=== PATIENT | male | born 1970 | race Caucasian/White ===

== ENCOUNTER 2018-04-27 11:36 | Inpatient (IN) | payer MEDICARE, MEDICAID ==
--- NOTE | 2018-04-27 15:48 | PCM.HP ---
H&P History of Present Illness - General Date of Service: 04/27/18 Admit Problem/Dx: S/P L) DONYA Infection Type II DM Source of Information: Patient History Limitations: Reports: No Limitations - History of Present Illness Initial Comments - Free Text/Narative: Elmer is a 47 year old male with PMH of hypertension, hyperlipidemia, type II DM, sleep apnea, and status post L)DONYA with removal and spacer placement due to infection, who is admitted to swing bed for L) DONYA infection. He was previously admitted to [facility] under care of Dr. Gaston (orthopedics). 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 He had the prosthesis removed and an antibiotic coated spacer placed on 04/21/2018. He does have partial hip dislocation, so he is to be TTWB to his LLE. He is to be on antibiotics until June 03. He is to have his sutures removed on 05/05/2018. He is admitted to swing bed for IV antibiotics and PT. At time of admission, patient denies any complaints other than left hip pain. He has been taking [place] for this, which does help the pain. Left Hip Pain Score (Numeric/FACES): 6 - Related Data Allergies/Adverse Reactions: Allergies Allergy/AdvReac Type Severity Reaction Status Date / Time amoxicillin Allergy Rash Verified 04/27/18 12:07 Penicillins Allergy Rash Verified 04/27/18 12:07 Home Medications: Home Meds Calcium Carbonate [Calcium] 500 mg PO DAILY 04/28/16 [History] Ferrous Sulfate [Iron] 325 mg PO DAILY 04/28/16 [History] metFORMIN [Glucophage] 1,000 mg PO BID 04/28/16 [History] Aspirin [Halfprin] 81 mg PO DAILY 04/27/18 [History] Cholecalciferol (Vitamin D3) [Vitamin D3] 2,000 unit PO DAILY 04/27/18 [History] Docusate Sodium 100 mg PO BID 04/27/18 [History] Hydrocodone/Acetaminophen [Hydrocodon-Acetaminophn 10-325] 1 tab PO Q4H PRN [History] Insulin Glarg,Human.Rec.Analog [LantUS Solostar] 60 unit SQ BEDTIME 04/27/18 [ History] Lisinopril 10 mg PO QPM 04/27/18 [History] Rosuvastatin Calcium 10 mg PO QPM 04/27/18 [History] Past Medical History Cardiovascular History: Reports: High Cholesterol, Hypertension Endocrine/Metabolic History: Reports: Diabetes, Type II - Past Surgical History Musculoskeletal Surgical History: Reports: Hip Replacement Social & Family History - Family History Family Medical History: Noncontributory Cardiac: Reports: High Cholesterol, Hypertension Endocrine/Metabolic: Reports: Diabetes, type II - Tobacco Use Smoking Status *Q: Never Smoker - Caffeine Use Caffeine Use: Reports: None H&P Review of Systems - Review of Systems: Review Of Systems: See Below General: Reports: No Symptoms. Denies: Fever, Chills, Weakness, Fatigue, Decreased Appetite HEENT: Reports: No Symptoms Pulmonary: Reports: No Symptoms. Denies: Shortness of Breath, Wheezing, Cough, Sputum Cardiovascular: Reports: No Symptoms. Denies: Chest Pain, Dyspnea on Exertion, Edema, Lightheadedness Gastrointestinal: Reports: No Symptoms. Denies: Abdominal Pain, Constipation, Diarrhea, Nausea, Vomiting Genitourinary: Reports: No Symptoms. Denies: Dysuria, Frequency, Urgency Musculoskeletal: Reports: Leg Pain (left), Joint Pain (left hip) Skin: Reports: Dryness (flaky), Change in Color (erythema from medication reaction) Psychiatric: Reports: No Symptoms Neurological: Reports: No Symptoms, Difficulty Walking (TTWB to LLE), Weakness. Denies: Confusion, Dizziness, Numbness, Tingling Hematologic/Lymphatic: Reports: No Symptoms Immunologic: Reports: No Symptoms Exam - Exam Exam: See Below - Vital Signs Weight: 255 lb 6.4 oz - Exam Quality Assessment: DVT Prophylaxis General: Alert, Oriented, 4 Neck: Supple, Trachea Midline, 2 Lungs: Clear to Auscultation, Normal Respiratory Effort Cardiovascular: Regular Rate, Regular Rhythm GI/Abdominal Exam: Normal Bowel Sounds, Soft, Non-Tender, No Organomegaly, No Distention, No Abnormal Bruit, No Mass, Pelvis Stable Back Exam: Normal Inspection, Full Range of Motion, Other (erythema & dry flaky skin) Extremities: Normal Capillary Refill, Leg Pain (LLE), Limited Range of Motion (L ) Hip). No: Increased Warmth, Redness Peripheral Pulses: 2+: Dorsalis Pedis (L), Dorsalis Pedis (R) Skin: Warm, Dry, Intact, Incision (L hip CDI) Neurological: Cranial Nerves Intact, Reflexes Equal Bilateral Neuro Extensive - Mental Status: Alert, Oriented x3, Normal Mood/Affect, Normal Cognition Psychiatric: Alert, Normal Affect, Normal Mood - Patient Data Result Diagrams: 04/27/18 16:10 04/27/18 16:10 - Problem List (1) Prosthetic hip infection SNOMED Code(s): 898007880 ICD Code: T84.59XA - INFECT/INFLM REACTION DUE TO OTH INTERNAL JOINT PROSTH, INIT; Z96.649 - PRESENCE OF UNSPECIFIED ARTIFICIAL HIP JOINT Status: Acute Priority: High Current Visit: Yes Qualifiers: Encounter type: initial encounter Qualified Code(s): T84.59XA - Infection and inflammatory reaction due to other internal joint prosthesis, initial encounter; Z96.649 - Presence of unspecified artificial hip joint (2) History of total left hip arthroplasty SNOMED Code(s): 108464061261 ICD Code: Z96.642 - PRESENCE OF LEFT ARTIFICIAL HIP JOINT Status: Acute Current Visit: Yes (3) Type II diabetes mellitus SNOMED Code(s): 96203399 ICD Code: E11.9 - TYPE 2 DIABETES MELLITUS WITHOUT COMPLICATIONS Status: Acute Current Visit: Yes Qualifiers: Diabetes mellitus dictaphone mechanic insulin use: with dictaphone mechanic use Diabetes mellitus complication status: with unspecified complications Qualified Code(s) : E11.8 - Type 2 diabetes mellitus with unspecified complications; Z79.4 - snf (current) use of insulin (4) Hypertension SNOMED Code(s): 96585408 ICD Code: I10 - ESSENTIAL (PRIMARY) HYPERTENSION Status: Chronic Current Visit: Yes Qualifiers: Hypertension type: unspecified Qualified Code(s): I10 - Essential (primary ) hypertension (5) Hyperlipidemia SNOMED Code(s): 38273085 ICD Code: E78.5 - HYPERLIPIDEMIA, UNSPECIFIED Status: Acute Current Visit : Yes Qualifiers: Hyperlipidemia type: mixed hyperlipidemia Qualified Code(s): E78.2 - Mixed hyperlipidemia Problem List Initiated/Reviewed/Updated: Yes Assessment/Plan Comment:: S/P Left DONYA removal with spacer placement- Infection Daptomycin 700 mg IV QD until 06/03/2018 Dressing changes PRN Suture removal 06/04/2018 Weekly labs to be faxed to ID at [facility] for DVT prophylaxis [place] as needed for pain TTWB to LLE PT consultation for gait, strenghening, endurange, and transfer training Hypertension Continue home meds Type II DM Home meds plus SSI. QID AC Consistent Carb diet Hyperlipidemia Continue statin therapy
[2018-04-27] MEDS ORDERED: Magnesium Hydroxide 400 MG/5 ML Susp 30 ML Cup PO PRN (15:54)
[2018-04-27] MEDS ORDERED: Temazepam 15 MG Cap PO PRN (15:54)
[2018-04-27] MEDS ORDERED: Polyethylene Glycol 3350 Powder 17 GM Packet PO PRN (15:54)
[2018-04-27] MEDS ORDERED: Docusate Sodium 100 MG Cap PO PRN (15:54)
[2018-04-27 16:27] LABS: CHLORIDE,CL 101 mEq/L (98-106); SODIUM,NA 139 mEq/L (136-145)
[2018-04-27] MEDS ORDERED: SODIUM CHLORIDE 0.9% IVPUSH SCH (17:00)
[2018-04-27] MEDS ORDERED: DAPTOMYCIN IVPUSH SCH (17:00)
[2018-04-27] MEDS: Enoxaparin 40 MG/0.4 ML Syringe SUBCUT SCH (17:11)
[2018-04-27] MEDS: Acetaminophen/HYDROcodone 325-5 MG Tab PO PRN ×2 (17:12→22:34)
[2018-04-27] MEDS: Insulin Aspart 100 Units/ML 3 ML Pen SUBCUT SCH ×2 (17:46→20:09)
[2018-04-27] MEDS: Acetaminophen 325 MG Tab PO PRN (18:25)
[2018-04-27] MEDS: Oxyquinoline/Emollient 0.3% Oint 1 OZ Canister TOP SCH (19:25)
[2018-04-27] MEDS: Lisinopril 10 MG Tab PO SCH (19:26)
[2018-04-27] MEDS: Docusate Sodium 100 MG Cap PO SCH (19:26)
[2018-04-27] MEDS: Simvastatin 40 MG Tab PO SCH (19:27)
[2018-04-27] MEDS ORDERED: Oxyquinoline/Emollient 0.3% Oint 1 OZ Canister TOP PRN (20:00)
[2018-04-27] MEDS ORDERED: metFORMIN 500 MG Tab PO SCH (20:00)
[2018-04-27] MEDS: Insulin Detemir 100 Units/ML 3 ML Pen SUBCUT SCH (20:08)
[2018-04-28] MEDS: Ferrous Sulfate 324 MG Tab.EC PO SCH (07:41)
[2018-04-28] MEDS: Docusate Sodium 100 MG Cap PO SCH ×2 (07:41→19:32)
[2018-04-28] MEDS: Oxyquinoline/Emollient 0.3% Oint 1 OZ Canister TOP SCH ×2 (07:41→20:30)
[2018-04-28] MEDS: Acetaminophen/HYDROcodone 325-5 MG Tab PO PRN ×3 (07:42→17:38)
[2018-04-28] MEDS: metFORMIN 500 MG Tab PO SCH ×2 (07:42→17:37)
[2018-04-28] MEDS: Cholecalciferol (Vitamin D3) 1,000 Unit Tab PO SCH (07:44)
[2018-04-28] MEDS: Calcium Carbonate 500 MG Tab.Chew PO SCH (07:44)
[2018-04-28] MEDS: Aspirin 81 MG Tab.EC PO SCH (07:44)
[2018-04-28] MEDS: Insulin Aspart 100 Units/ML 3 ML Pen SUBCUT SCH ×4 (07:45→20:25)
[2018-04-28] MEDS: DAPTOmycin 700 MG in Sodium Chloride 0.9% 50 ML IV SCH (11:36)
[2018-04-28] MEDS: Acetaminophen 325 MG Tab PO PRN (11:55)
[2018-04-28] MEDS: Enoxaparin 40 MG/0.4 ML Syringe SUBCUT SCH (16:17)
[2018-04-28] MEDS: Simvastatin 40 MG Tab PO SCH (19:32)
[2018-04-28] MEDS: Lisinopril 10 MG Tab PO SCH (19:32)
[2018-04-28] MEDS: Insulin Detemir 100 Units/ML 3 ML Pen SUBCUT SCH (20:31)
[2018-04-29] MEDS: Acetaminophen/HYDROcodone 325-5 MG Tab PO PRN ×5 (00:11→18:53)
[2018-04-29] MEDS: Oxyquinoline/Emollient 0.3% Oint 1 OZ Canister TOP SCH ×2 (07:47→19:52)
[2018-04-29] MEDS: metFORMIN 500 MG Tab PO SCH ×2 (07:48→17:34)
[2018-04-29] MEDS: Calcium Carbonate 500 MG Tab.Chew PO SCH (07:49)
[2018-04-29] MEDS: Docusate Sodium 100 MG Cap PO SCH ×2 (07:49→19:53)
[2018-04-29] MEDS: Cholecalciferol (Vitamin D3) 1,000 Unit Tab PO SCH (07:49)
[2018-04-29] MEDS: Aspirin 81 MG Tab.EC PO SCH (07:49)
[2018-04-29] MEDS: Ferrous Sulfate 324 MG Tab.EC PO SCH (07:50)
[2018-04-29] MEDS: Insulin Aspart 100 Units/ML 3 ML Pen SUBCUT SCH ×4 (07:50→21:10)
[2018-04-29] MEDS: diphenhydrAMINE 25 MG Cap PO PRN ×2 (10:47→19:53)
[2018-04-29] MEDS: DAPTOmycin 700 MG in Sodium Chloride 0.9% 50 ML IV SCH (12:34)
[2018-04-29] MEDS: Enoxaparin 40 MG/0.4 ML Syringe SUBCUT SCH (16:04)
[2018-04-29] MEDS: Lisinopril 10 MG Tab PO SCH (19:53)
[2018-04-29] MEDS: Simvastatin 40 MG Tab PO SCH (19:53)
[2018-04-29] MEDS: Insulin Detemir 100 Units/ML 3 ML Pen SUBCUT SCH (19:55)
[2018-04-30] MEDS: Acetaminophen/HYDROcodone 325-5 MG Tab PO PRN ×4 (05:58→22:34)
[2018-04-30] MEDS: Oxyquinoline/Emollient 0.3% Oint 1 OZ Canister TOP SCH ×2 (07:31→19:56)
[2018-04-30] MEDS: Ferrous Sulfate 324 MG Tab.EC PO SCH (07:32)
[2018-04-30] MEDS: Cholecalciferol (Vitamin D3) 1,000 Unit Tab PO SCH (07:32)
[2018-04-30] MEDS: Docusate Sodium 100 MG Cap PO SCH ×2 (07:32→19:57)
[2018-04-30] MEDS: Aspirin 81 MG Tab.EC PO SCH (07:34)
[2018-04-30] MEDS: Calcium Carbonate 500 MG Tab.Chew PO SCH (07:34)
[2018-04-30] MEDS: metFORMIN 500 MG Tab PO SCH ×2 (07:34→17:12)
[2018-04-30] MEDS: Insulin Aspart 100 Units/ML 3 ML Pen SUBCUT SCH ×4 (07:40→20:51)
[2018-04-30] MEDS: DAPTOmycin 700 MG in Sodium Chloride 0.9% 50 ML IV SCH (11:32)
[2018-04-30] MEDS: Enoxaparin 40 MG/0.4 ML Syringe SUBCUT SCH (15:58)
[2018-04-30] MEDS: Simvastatin 40 MG Tab PO SCH (19:57)
[2018-04-30] MEDS: Lisinopril 10 MG Tab PO SCH (19:57)
[2018-04-30] MEDS: diphenhydrAMINE 25 MG Cap PO PRN (19:59)
[2018-04-30] MEDS: Insulin Detemir 100 Units/ML 3 ML Pen SUBCUT SCH (20:50)
[2018-05-01] MEDS: Docusate Sodium 100 MG Cap PO SCH ×2 (07:13→19:43)
[2018-05-01] MEDS: Oxyquinoline/Emollient 0.3% Oint 1 OZ Canister TOP SCH ×2 (07:13→19:42)
[2018-05-01] MEDS: metFORMIN 500 MG Tab PO SCH ×2 (07:14→17:29)
[2018-05-01] MEDS: Calcium Carbonate 500 MG Tab.Chew PO SCH (07:14)
[2018-05-01] MEDS: Aspirin 81 MG Tab.EC PO SCH (07:14)
[2018-05-01] MEDS: Ferrous Sulfate 324 MG Tab.EC PO SCH (07:14)
[2018-05-01] MEDS: Cholecalciferol (Vitamin D3) 1,000 Unit Tab PO SCH (07:15)
[2018-05-01] MEDS: Acetaminophen/HYDROcodone 325-5 MG Tab PO PRN ×2 (07:18→15:33)
[2018-05-01] MEDS: Insulin Aspart 100 Units/ML 3 ML Pen SUBCUT SCH ×4 (07:57→21:00)
[2018-05-01] MEDS: DAPTOmycin 700 MG in Sodium Chloride 0.9% 50 ML IV SCH (11:26)
[2018-05-01] MEDS: Enoxaparin 40 MG/0.4 ML Syringe SUBCUT SCH (15:29)
[2018-05-01] MEDS: Simvastatin 40 MG Tab PO SCH (19:43)
[2018-05-01] MEDS: Lisinopril 10 MG Tab PO SCH (19:43)
[2018-05-01] MEDS: Insulin Detemir 100 Units/ML 3 ML Pen SUBCUT SCH (21:07)
[2018-05-02] MEDS: Oxyquinoline/Emollient 0.3% Oint 1 OZ Canister TOP SCH ×2 (07:39→20:51)
[2018-05-02] MEDS: Calcium Carbonate 500 MG Tab.Chew PO SCH (07:40)
[2018-05-02] MEDS: Insulin Aspart 100 Units/ML 3 ML Pen SUBCUT SCH ×4 (07:40→20:46)
[2018-05-02] MEDS: metFORMIN 500 MG Tab PO SCH ×2 (07:40→17:28)
[2018-05-02] MEDS: Docusate Sodium 100 MG Cap PO SCH ×2 (07:40→20:44)
[2018-05-02] MEDS: Ferrous Sulfate 324 MG Tab.EC PO SCH (07:41)
[2018-05-02] MEDS: Aspirin 81 MG Tab.EC PO SCH (07:41)
[2018-05-02] MEDS: Acetaminophen/HYDROcodone 325-5 MG Tab PO PRN ×3 (09:28→20:44)
[2018-05-02] MEDS: Cholecalciferol (Vitamin D3) 1,000 Unit Tab PO SCH (09:32)
[2018-05-02] MEDS: DAPTOmycin 700 MG in Sodium Chloride 0.9% 50 ML IV SCH (11:41)
[2018-05-02] MEDS: Enoxaparin 40 MG/0.4 ML Syringe SUBCUT SCH (16:31)
[2018-05-02] MEDS: Lisinopril 10 MG Tab PO SCH (20:43)
[2018-05-02] MEDS: Simvastatin 40 MG Tab PO SCH (20:44)
[2018-05-02] MEDS: Insulin Detemir 100 Units/ML 3 ML Pen SUBCUT SCH (20:47)
[2018-05-03] MEDS: Oxyquinoline/Emollient 0.3% Oint 1 OZ Canister TOP SCH ×2 (08:31→19:43)
[2018-05-03] MEDS: metFORMIN 500 MG Tab PO SCH ×2 (08:32→17:56)
[2018-05-03] MEDS: Ferrous Sulfate 324 MG Tab.EC PO SCH (08:32)
[2018-05-03] MEDS: Aspirin 81 MG Tab.EC PO SCH (08:32)
[2018-05-03] MEDS: Docusate Sodium 100 MG Cap PO SCH ×2 (08:32→19:43)
[2018-05-03] MEDS: Cholecalciferol (Vitamin D3) 1,000 Unit Tab PO SCH (08:32)
[2018-05-03] MEDS: Insulin Aspart 100 Units/ML 3 ML Pen SUBCUT SCH ×4 (08:34→20:53)
[2018-05-03] MEDS: Calcium Carbonate 500 MG Tab.Chew PO SCH (08:36)
[2018-05-03] MEDS: DAPTOmycin 700 MG in Sodium Chloride 0.9% 50 ML IV SCH (13:00)
[2018-05-03] MEDS: Acetaminophen/HYDROcodone 325-5 MG Tab PO PRN ×3 (13:05→20:57)
[2018-05-03] MEDS: Enoxaparin 40 MG/0.4 ML Syringe SUBCUT SCH (16:17)
[2018-05-03] MEDS: Lisinopril 10 MG Tab PO SCH (19:42)
[2018-05-03] MEDS: Simvastatin 40 MG Tab PO SCH (19:42)
[2018-05-03] MEDS: Insulin Detemir 100 Units/ML 3 ML Pen SUBCUT SCH (20:52)
[2018-05-04] MEDS: Acetaminophen/HYDROcodone 325-5 MG Tab PO PRN ×4 (04:35→20:34)
[2018-05-04] MEDS: metFORMIN 500 MG Tab PO SCH ×2 (07:35→17:20)
[2018-05-04] MEDS: Ferrous Sulfate 324 MG Tab.EC PO SCH (07:36)
[2018-05-04] MEDS: Calcium Carbonate 500 MG Tab.Chew PO SCH (07:36)
[2018-05-04] MEDS: Aspirin 81 MG Tab.EC PO SCH (07:36)
[2018-05-04] MEDS: Docusate Sodium 100 MG Cap PO SCH ×2 (07:36→20:31)
[2018-05-04] MEDS: Cholecalciferol (Vitamin D3) 1,000 Unit Tab PO SCH (07:36)
[2018-05-04] MEDS: Oxyquinoline/Emollient 0.3% Oint 1 OZ Canister TOP SCH ×2 (07:36→20:30)
[2018-05-04 07:41] LABS: CHLORIDE,CL 95 mEq/L (98-106); SODIUM,NA 131 mEq/L (136-145)
[2018-05-04] MEDS: Insulin Aspart 100 Units/ML 3 ML Pen SUBCUT SCH ×4 (07:56→20:34)
[2018-05-04] MEDS: DAPTOmycin 700 MG in Sodium Chloride 0.9% 50 ML IV SCH (11:22)
[2018-05-04] MEDS: Enoxaparin 40 MG/0.4 ML Syringe SUBCUT SCH (15:50)
[2018-05-04] MEDS: Simvastatin 40 MG Tab PO SCH (20:31)
[2018-05-04] MEDS: Insulin Detemir 100 Units/ML 3 ML Pen SUBCUT SCH (20:32)
[2018-05-04] MEDS: Lisinopril 10 MG Tab PO SCH (20:32)
[2018-05-05] MEDS: Acetaminophen/HYDROcodone 325-5 MG Tab PO PRN ×3 (03:36→19:32)
[2018-05-05] MEDS: Calcium Carbonate 500 MG Tab.Chew PO SCH (07:45)
[2018-05-05] MEDS: metFORMIN 500 MG Tab PO SCH ×2 (07:46→17:08)
[2018-05-05] MEDS: Ferrous Sulfate 324 MG Tab.EC PO SCH (07:46)
[2018-05-05] MEDS: Cholecalciferol (Vitamin D3) 1,000 Unit Tab PO SCH (07:47)
[2018-05-05] MEDS: Docusate Sodium 100 MG Cap PO SCH ×2 (07:47→19:32)
[2018-05-05] MEDS: Aspirin 81 MG Tab.EC PO SCH (07:47)
[2018-05-05] MEDS: Oxyquinoline/Emollient 0.3% Oint 1 OZ Canister TOP SCH ×2 (07:49→19:34)
[2018-05-05] MEDS: Insulin Aspart 100 Units/ML 3 ML Pen SUBCUT SCH ×4 (08:04→21:11)
[2018-05-05] MEDS: DAPTOmycin 700 MG in Sodium Chloride 0.9% 50 ML IV SCH (11:25)
[2018-05-05] MEDS: Enoxaparin 40 MG/0.4 ML Syringe SUBCUT SCH (16:17)
[2018-05-05] MEDS: Simvastatin 40 MG Tab PO SCH (19:33)
[2018-05-05] MEDS: Lisinopril 10 MG Tab PO SCH (19:33)
[2018-05-05] MEDS: Insulin Detemir 100 Units/ML 3 ML Pen SUBCUT SCH (21:09)
[2018-05-05] MEDS ORDERED: hydrOXYzine HCl 25 MG Tab PO PRN (22:24)
[2018-05-06] MEDS: Acetaminophen/HYDROcodone 325-5 MG Tab PO PRN ×4 (01:15→18:52)
[2018-05-06] MEDS: Calcium Carbonate 500 MG Tab.Chew PO SCH (08:12)
[2018-05-06] MEDS: metFORMIN 500 MG Tab PO SCH ×2 (08:13→17:20)
[2018-05-06] MEDS: Aspirin 81 MG Tab.EC PO SCH (08:13)
[2018-05-06] MEDS: Insulin Aspart 100 Units/ML 3 ML Pen SUBCUT SCH ×4 (08:13→20:04)
[2018-05-06] MEDS: Ferrous Sulfate 324 MG Tab.EC PO SCH (08:13)
[2018-05-06] MEDS: Docusate Sodium 100 MG Cap PO SCH ×2 (08:13→20:01)
[2018-05-06] MEDS: Oxyquinoline/Emollient 0.3% Oint 1 OZ Canister TOP SCH ×2 (08:13→20:00)
[2018-05-06] MEDS: Cholecalciferol (Vitamin D3) 1,000 Unit Tab PO SCH (08:13)
[2018-05-06] MEDS: DAPTOmycin 700 MG in Sodium Chloride 0.9% 50 ML IV SCH (11:44)
[2018-05-06] MEDS: Enoxaparin 40 MG/0.4 ML Syringe SUBCUT SCH (17:19)
[2018-05-06] MEDS: Lisinopril 10 MG Tab PO SCH (20:01)
[2018-05-06] MEDS: Simvastatin 40 MG Tab PO SCH (20:02)
[2018-05-06] MEDS: Insulin Detemir 100 Units/ML 3 ML Pen SUBCUT SCH (20:05)
[2018-05-07] MEDS: Acetaminophen/HYDROcodone 325-5 MG Tab PO PRN ×4 (02:45→20:41)
[2018-05-07] MEDS: Oxyquinoline/Emollient 0.3% Oint 1 OZ Canister TOP SCH ×2 (08:31→19:34)
[2018-05-07] MEDS: Calcium Carbonate 500 MG Tab.Chew PO SCH (08:31)
[2018-05-07] MEDS: Aspirin 81 MG Tab.EC PO SCH (08:33)
[2018-05-07] MEDS: Cholecalciferol (Vitamin D3) 1,000 Unit Tab PO SCH (08:33)
[2018-05-07] MEDS: Docusate Sodium 100 MG Cap PO SCH ×2 (08:33→19:35)
[2018-05-07] MEDS: Ferrous Sulfate 324 MG Tab.EC PO SCH (08:33)
[2018-05-07] MEDS: Insulin Aspart 100 Units/ML 3 ML Pen SUBCUT SCH ×4 (08:34→20:44)
[2018-05-07] MEDS: metFORMIN 500 MG Tab PO SCH ×2 (08:34→17:20)
[2018-05-07] MEDS: DAPTOmycin 700 MG in Sodium Chloride 0.9% 50 ML IV SCH (12:41)
[2018-05-07] MEDS: Enoxaparin 40 MG/0.4 ML Syringe SUBCUT SCH (15:03)
[2018-05-07] MEDS: Lisinopril 10 MG Tab PO SCH (19:35)
[2018-05-07] MEDS: Simvastatin 40 MG Tab PO SCH (19:35)
[2018-05-07] MEDS: Insulin Detemir 100 Units/ML 3 ML Pen SUBCUT SCH (20:43)
[2018-05-08] MEDS: Acetaminophen/HYDROcodone 325-5 MG Tab PO PRN ×2 (03:17→14:49)
[2018-05-08] MEDS: Calcium Carbonate 500 MG Tab.Chew PO SCH (08:16)
[2018-05-08] MEDS: Ferrous Sulfate 324 MG Tab.EC PO SCH (08:16)
[2018-05-08] MEDS: Aspirin 81 MG Tab.EC PO SCH (08:16)
[2018-05-08] MEDS: metFORMIN 500 MG Tab PO SCH ×2 (08:16→17:27)
[2018-05-08] MEDS: Cholecalciferol (Vitamin D3) 1,000 Unit Tab PO SCH (08:16)
[2018-05-08] MEDS: Insulin Aspart 100 Units/ML 3 ML Pen SUBCUT SCH ×4 (08:17→20:09)
[2018-05-08] MEDS: Docusate Sodium 100 MG Cap PO SCH ×2 (08:17→19:31)
[2018-05-08] MEDS: Oxyquinoline/Emollient 0.3% Oint 1 OZ Canister TOP SCH ×2 (08:17→19:30)
[2018-05-08] MEDS: Acetaminophen 325 MG Tab PO PRN (11:13)
[2018-05-08] MEDS: DAPTOmycin 700 MG in Sodium Chloride 0.9% 50 ML IV SCH (11:13)
[2018-05-08] MEDS: Enoxaparin 40 MG/0.4 ML Syringe SUBCUT SCH (17:27)
[2018-05-08] MEDS: Lisinopril 10 MG Tab PO SCH (19:31)
[2018-05-08] MEDS: Simvastatin 40 MG Tab PO SCH (19:31)
[2018-05-08] MEDS: Insulin Detemir 100 Units/ML 3 ML Pen SUBCUT SCH (20:08)
[2018-05-09] MEDS: Acetaminophen/HYDROcodone 325-5 MG Tab PO PRN ×5 (00:36→21:55)
[2018-05-09] MEDS: Docusate Sodium 100 MG Cap PO SCH ×2 (08:09→19:56)
[2018-05-09] MEDS: Calcium Carbonate 500 MG Tab.Chew PO SCH (08:09)
[2018-05-09] MEDS: metFORMIN 500 MG Tab PO SCH ×2 (08:09→16:54)
[2018-05-09] MEDS: Cholecalciferol (Vitamin D3) 1,000 Unit Tab PO SCH (08:09)
[2018-05-09] MEDS: Ferrous Sulfate 324 MG Tab.EC PO SCH (08:09)
[2018-05-09] MEDS: Oxyquinoline/Emollient 0.3% Oint 1 OZ Canister TOP SCH ×2 (08:09→19:56)
[2018-05-09] MEDS: Aspirin 81 MG Tab.EC PO SCH (08:09)
[2018-05-09] MEDS: Insulin Aspart 100 Units/ML 3 ML Pen SUBCUT SCH ×4 (08:10→20:00)
[2018-05-09 08:52] LABS: CHLORIDE,CL 97 mEq/L (98-106); SODIUM,NA 134 mEq/L (136-145)
[2018-05-09] MEDS: DAPTOmycin 700 MG in Sodium Chloride 0.9% 50 ML IV SCH (11:41)
[2018-05-09] MEDS: Enoxaparin 40 MG/0.4 ML Syringe SUBCUT SCH (16:54)
[2018-05-09] MEDS: Lisinopril 10 MG Tab PO SCH (19:55)
[2018-05-09] MEDS: Simvastatin 40 MG Tab PO SCH (19:55)
[2018-05-09] MEDS: Insulin Detemir 100 Units/ML 3 ML Pen SUBCUT SCH (19:58)
[2018-05-10] MEDS: Acetaminophen/HYDROcodone 325-5 MG Tab PO PRN ×2 (04:47→17:56)
[2018-05-10] MEDS: Ferrous Sulfate 324 MG Tab.EC PO SCH (07:41)
[2018-05-10] MEDS: Calcium Carbonate 500 MG Tab.Chew PO SCH (07:41)
[2018-05-10] MEDS: Docusate Sodium 100 MG Cap PO SCH ×2 (07:42→20:14)
[2018-05-10] MEDS: Aspirin 81 MG Tab.EC PO SCH (07:42)
[2018-05-10] MEDS: metFORMIN 500 MG Tab PO SCH ×2 (07:42→17:52)
[2018-05-10] MEDS: Cholecalciferol (Vitamin D3) 1,000 Unit Tab PO SCH (07:42)
[2018-05-10] MEDS: Oxyquinoline/Emollient 0.3% Oint 1 OZ Canister TOP SCH ×2 (07:43→20:13)
[2018-05-10] MEDS: Insulin Aspart 100 Units/ML 3 ML Pen SUBCUT SCH ×4 (07:44→20:16)
[2018-05-10] MEDS: DAPTOmycin 700 MG in Sodium Chloride 0.9% 50 ML IV SCH (17:51)
[2018-05-10] MEDS: Enoxaparin 40 MG/0.4 ML Syringe SUBCUT SCH (17:52)
[2018-05-10] MEDS: Simvastatin 40 MG Tab PO SCH (20:13)
[2018-05-10] MEDS: Lisinopril 10 MG Tab PO SCH (20:13)
[2018-05-10] MEDS: Insulin Detemir 100 Units/ML 3 ML Pen SUBCUT SCH (20:14)
[2018-05-11] MEDS: Acetaminophen/HYDROcodone 325-5 MG Tab PO PRN ×2 (04:22→10:04)
[2018-05-11] MEDS: Aspirin 81 MG Tab.EC PO SCH (07:22)
[2018-05-11] MEDS: Ferrous Sulfate 324 MG Tab.EC PO SCH (07:22)
[2018-05-11] MEDS: Cholecalciferol (Vitamin D3) 1,000 Unit Tab PO SCH (07:22)
[2018-05-11] MEDS: metFORMIN 500 MG Tab PO SCH ×2 (07:22→17:24)
[2018-05-11] MEDS: Calcium Carbonate 500 MG Tab.Chew PO SCH (07:22)
[2018-05-11] MEDS: Docusate Sodium 100 MG Cap PO SCH ×2 (07:22→20:14)
[2018-05-11] MEDS: Insulin Aspart 100 Units/ML 3 ML Pen SUBCUT SCH ×4 (07:23→20:15)
[2018-05-11] MEDS: Oxyquinoline/Emollient 0.3% Oint 1 OZ Canister TOP SCH ×2 (09:09→20:14)
[2018-05-11] MEDS: DAPTOmycin 700 MG in Sodium Chloride 0.9% 50 ML IV SCH (11:44)
[2018-05-11] MEDS: Enoxaparin 40 MG/0.4 ML Syringe SUBCUT SCH (16:19)
[2018-05-11] MEDS: Acetaminophen 325 MG Tab PO PRN (17:36)
[2018-05-11] MEDS: Lisinopril 10 MG Tab PO SCH (20:14)
[2018-05-11] MEDS: Simvastatin 40 MG Tab PO SCH (20:14)
[2018-05-11] MEDS: Insulin Detemir 100 Units/ML 3 ML Pen SUBCUT SCH (20:16)
[2018-05-12] MEDS: Acetaminophen/HYDROcodone 325-5 MG Tab PO PRN ×4 (02:58→18:30)
[2018-05-12] MEDS: Calcium Carbonate 500 MG Tab.Chew PO SCH (07:54)
[2018-05-12] MEDS: metFORMIN 500 MG Tab PO SCH ×2 (07:55→17:29)
[2018-05-12] MEDS: Aspirin 81 MG Tab.EC PO SCH (07:55)
[2018-05-12] MEDS: Docusate Sodium 100 MG Cap PO SCH ×2 (07:55→19:56)
[2018-05-12] MEDS: Cholecalciferol (Vitamin D3) 1,000 Unit Tab PO SCH (07:55)
[2018-05-12] MEDS: Ferrous Sulfate 324 MG Tab.EC PO SCH (07:55)
[2018-05-12] MEDS: Insulin Aspart 100 Units/ML 3 ML Pen SUBCUT SCH ×4 (07:56→20:14)
[2018-05-12] MEDS: Oxyquinoline/Emollient 0.3% Oint 1 OZ Canister TOP SCH ×2 (07:57→19:56)
--- NOTE | 2018-05-12 08:41 | PCM.PN ---
- General Info Date of Service: 05/12/18 Admission Dx/Problem (Free Text): S/P L) DONYA Infection Type II DM Subjective Update: Elmer is a 47 year old male who was admitted to the hospital for IV antibiotics. He is status post L) DONYA with removal and spacer placement due to infection. He is to be on antibiotics until June 03 due to this. He is also to be TTWB to his LLE. He reports he has been doing well since admission. He reports his pain has been well controlled. He does experience some pain with movement, but other than that has been doing well. He has been afebrile and his labs had been stable. ID from [facility] is also following weekly labs. Functional Status: Reports: Pain Controlled, Tolerating Diet, Ambulating, Urinating. Denies: New Symptoms - Review of Systems General: Reports: No Symptoms. Denies: Fever, Weakness, Fatigue, Chills Pulmonary: Reports: No Symptoms. Denies: Shortness of Breath, Pleuritic Chest Pain, Cough, Sputum Cardiovascular: Reports: No Symptoms. Denies: Chest Pain, Palpitations, Dyspnea on Exertion, Edema, Lightheadedness Gastrointestinal: Reports: No Symptoms. Denies: Abdominal Pain, Constipation, Decreased Appetite, Diarrhea, Nausea, Vomiting Genitourinary: Reports: No Symptoms. Denies: Dysuria, Frequency, Urgency Musculoskeletal: Reports: Leg Pain (left leg), Joint Pain (left hip) Skin: Reports: No Symptoms Neurological: Reports: No Symptoms Psychiatric: Reports: No Symptoms - Patient Data Vitals - Most Recent: Last Vital Signs Temp 97.6 F 05/12/18 07:56 Pulse 98 05/12/18 07:56 Resp 16 05/12/18 07:56 BP 120/55 L 05/12/18 07:56 Pulse Ox 95 05/12/18 07:56 Weight - Most Recent: 232 lb 8 oz Lab Results Last 24 Hours: Laboratory Results - last 24 hr 05/11/18 05/11/18 05/11/18 Range/Units 11:57 17:05 20:13 POC Glucose 85 113 H 201 H (75-105) mg/dl 05/12/18 Range/Units 07:30 POC Glucose 127 H (75-105) mg/dl Med Orders - Current: Current Medications Acetaminophen (Tylenol) 650 mg PO Q4H PRN PRN Reason: Pain (Mild 1-3)/fever Last Admin: 05/11/18 17:36 Dose: 650 mg Hydrocodone Bitart/Acetaminophen ([place] 325-5 Mg) 1 - 2 tab PO Q4H PRN PRN Reason: Pain (moderate 4-6) Last Admin: 05/12/18 07:55 Dose: 1 tab Aspirin (Halfprin) 81 mg PO DAILY [facility] Last Admin: 05/12/18 07:55 Dose: 81 mg Calcium Carbonate/Glycine (Tums) 500 mg PO DAILY [facility] Last Admin: 05/12/18 07:54 Dose: 500 mg Cholecalciferol (Vitamin D3) 2,000 units PO DAILY [facility] Last Admin: 05/12/18 07:55 Dose: 2,000 units Diphenhydramine HCl (Benadryl) 25 mg PO Q4H PRN PRN Reason: Rash Last Admin: 04/30/18 19:59 Dose: 25 mg Docusate Sodium (Colace) 100 mg PO BID PRN PRN Reason: Constipation Docusate Sodium (Colace) 100 mg PO BID [facility] Last Admin: 05/12/18 07:55 Dose: 100 mg Enoxaparin Sodium (Lovenox) 40 mg SUBCUT Q24H [facility] Last Admin: 05/11/18 16:19 Dose: 40 mg Ferrous Sulfate (Ferrous Sulfate) 324 mg PO DAILY [facility] Last Admin: 05/12/18 07:55 Dose: 324 mg Heparin Sodium (Porcine) (Heparin Lock Flush 100 Units/Ml) 300 units FLUSH DAILY@1200 [facility] Last Admin: 05/11/18 11:48 Dose: 300 units Hydroxyzine HCl (Atarax) 25 mg PO TID PRN PRN Reason: Itching Last Admin: 05/06/18 01:15 Dose: 25 mg Daptomycin 700 mg/ Sodium (Chloride) 50 mls @ 100 mls/hr IV DAILY@1200 [facility] Last Admin: 05/11/18 11:44 Dose: 100 mls/hr Insulin Aspart (Novolog) 0 unit SUBCUT WITHMEALSANDBED [facility]; Protocol Last Admin: 05/12/18 07:56 Dose: Not Given Insulin Detemir (Levemir) 60 unit SUBCUT BEDTIME [facility] Last Admin: 05/11/18 20:16 Dose: 60 units Lisinopril (Prinivil) 10 mg PO QPM [facility] Last Admin: 05/11/18 20:14 Dose: 10 mg Magnesium Hydroxide (Milk Of Magnesia) 30 ml PO Q12H PRN PRN Reason: Constipation Metformin HCl (Glucophage) 1,000 mg PO BIDMEALS [facility] Last Admin: 05/12/18 07:55 Dose: 1,000 mg Oxyquinoline Sulfate (Bag [place] Oint) 0 oz TOP BID [facility] Last Admin: 05/12/18 07:57 Dose: 1 applic Polyethylene Glycol (Miralax) 17 gm PO DAILY PRN PRN Reason: Constipation Simvastatin (Zocor) 40 mg PO BEDTIME [facility] Last Admin: 05/11/18 20:14 Dose: 40 mg Temazepam (Restoril) 15 mg PO BEDTIME PRN PRN Reason: Sleep Discontinued Medications Daptomycin 700mg In Sodium Chloride 0.9% 50 Ml 50 mls @ 100 mls/hr IVPUSH DAILY @1200 [facility] Last Admin: 04/27/18 17:13 Dose: Not Given Metformin HCl (Glucophage) 1,000 mg PO BID [facility] - Exam Quality Assessment: DVT Prophylaxis. No: Skin Breakdown General: Alert, Oriented, No Acute Distress Neck: Supple Lungs: Clear to Auscultation, Normal Respiratory Effort Cardiovascular: Regular Rate, Regular Rhythm GI/Abdominal Exam: Normal Bowel Sounds, Soft, Non-Tender, No Organomegaly, No Distention, No Abnormal Bruit, No Mass, Pelvis Stable Extremities: Normal Inspection, Normal Range of Motion, Non-Tender, No Pedal Edema, Normal Capillary Refill, Limited Range of Motion (left hip). No: Increased Warmth, Redness Peripheral Pulses: 2+: Posterior Tibial (L), Dorsalis Pedis (L) Skin: Warm, Dry, Intact Wound/Incisions: Healing Well. No: Erythema Neurological: No New Focal Deficit Psy/Mental Status: Alert, Normal Affect, Normal Mood - Problem List & Annotations (1) Prosthetic hip infection SNOMED Code(s): 590256203 Code(s): T84.59XA - INFECT/INFLM REACTION DUE TO OTH INTERNAL JOINT PROSTH, INIT; Z96.649 - PRESENCE OF UNSPECIFIED ARTIFICIAL HIP JOINT Status: Acute Priority: High Current Visit: Yes Qualifiers: Encounter type: initial encounter Qualified Code(s): T84.59XA - Infection and inflammatory reaction due to other internal joint prosthesis, initial encounter; Z96.649 - Presence of unspecified artificial hip joint (2) History of total left hip arthroplasty SNOMED Code(s): 322224059806 Code(s): Z96.642 - PRESENCE OF LEFT ARTIFICIAL HIP JOINT Status: Acute Current Visit: Yes (3) Type II diabetes mellitus SNOMED Code(s): 14473980 Code(s): E11.9 - TYPE 2 DIABETES MELLITUS WITHOUT COMPLICATIONS Status: Acute Current Visit: Yes Qualifiers: Diabetes mellitus group home insulin use: with marble installation helper use Diabetes mellitus complication status: with unspecified complications Qualified Code(s) : E11.8 - Type 2 diabetes mellitus with unspecified complications; Z79.4 - hose turner (current) use of insulin (4) Hypertension SNOMED Code(s): 26295908 Code(s): I10 - ESSENTIAL (PRIMARY) HYPERTENSION Status: Chronic Current Visit: Yes Qualifiers: Hypertension type: unspecified Qualified Code(s): I10 - Essential (primary ) hypertension (5) Hyperlipidemia SNOMED Code(s): 08022111 Code(s): E78.5 - HYPERLIPIDEMIA, UNSPECIFIED Status: Acute Current Visit : Yes Qualifiers: Hyperlipidemia type: mixed hyperlipidemia Qualified Code(s): E78.2 - Mixed hyperlipidemia - Problem List Review Problem List Initiated/Reviewed/Updated: Yes - Plan Plan:: S/P Left DONYA removal with spacer placement- Infection Daptomycin 700 mg IV QD until 06/03/2018 Incision CDI. May leave PROPOSAL MANAGER WRITER. Suture removal 06/04/2018 Weekly labs to be faxed to ID at [facility]. Labs have been stable. Lovenox for DVT prophylaxis [place] as needed for pain TTWB to LLE PT consultation for gait, strengthening, endurance, and transfer training. He has been ambulating independently with walker. Hypertension Continue home meds. Blood pressures well controlled. Type II DM Home meds plus SSI. QID AC Consistent Carb diet Blood sugars have been well controlled overall. Hyperlipidemia Continue statin therapy Recertification This is a 14 day re-certification visit. Patient requires IV antibiotic until June 03, given significant joint infection. He also continues to work with physical therapy for gait, strengthening, endurance, and transfer training. We anticipate discharge on 06/04/2018, following antibiotics and suture removal. Re- certification visit was one day late due to provider off day.
[2018-05-12] MEDS: DAPTOmycin 700 MG in Sodium Chloride 0.9% 50 ML IV SCH (11:59)
[2018-05-12] MEDS: Enoxaparin 40 MG/0.4 ML Syringe SUBCUT SCH (16:02)
[2018-05-12] MEDS: Simvastatin 40 MG Tab PO SCH (19:56)
[2018-05-12] MEDS: Lisinopril 10 MG Tab PO SCH (19:56)
[2018-05-12] MEDS: Insulin Detemir 100 Units/ML 3 ML Pen SUBCUT SCH (19:57)
[2018-05-13] MEDS: Acetaminophen 325 MG Tab PO PRN ×3 (05:00→21:52)
[2018-05-13] MEDS: Aspirin 81 MG Tab.EC PO SCH (08:10)
[2018-05-13] MEDS: metFORMIN 500 MG Tab PO SCH ×2 (08:10→16:33)
[2018-05-13] MEDS: Ferrous Sulfate 324 MG Tab.EC PO SCH (08:10)
[2018-05-13] MEDS: Calcium Carbonate 500 MG Tab.Chew PO SCH (08:10)
[2018-05-13] MEDS: Docusate Sodium 100 MG Cap PO SCH ×2 (08:10→19:35)
[2018-05-13] MEDS: Cholecalciferol (Vitamin D3) 1,000 Unit Tab PO SCH (08:10)
[2018-05-13] MEDS ORDERED: Oxyquinoline/Emollient 0.3% Oint 1 OZ Canister TOP PRN (08:12)
[2018-05-13] MEDS: Oxyquinoline/Emollient 0.3% Oint 1 OZ Canister TOP SCH (08:13)
[2018-05-13] MEDS: Insulin Aspart 100 Units/ML 3 ML Pen SUBCUT SCH ×4 (08:13→21:48)
[2018-05-13] MEDS: DAPTOmycin 700 MG in Sodium Chloride 0.9% 50 ML IV SCH (12:44)
[2018-05-13] MEDS: Enoxaparin 40 MG/0.4 ML Syringe SUBCUT SCH (16:06)
[2018-05-13] MEDS: Lisinopril 10 MG Tab PO SCH (19:35)
[2018-05-13] MEDS: Simvastatin 40 MG Tab PO SCH (19:35)
[2018-05-13] MEDS: Insulin Detemir 100 Units/ML 3 ML Pen SUBCUT SCH (21:48)
[2018-05-14] MEDS: Ferrous Sulfate 324 MG Tab.EC PO SCH (07:18)
[2018-05-14] MEDS: Aspirin 81 MG Tab.EC PO SCH (07:18)
[2018-05-14] MEDS: metFORMIN 500 MG Tab PO SCH ×2 (07:18→18:13)
[2018-05-14] MEDS: Calcium Carbonate 500 MG Tab.Chew PO SCH (07:18)
[2018-05-14] MEDS: Cholecalciferol (Vitamin D3) 1,000 Unit Tab PO SCH (07:18)
[2018-05-14] MEDS: Docusate Sodium 100 MG Cap PO SCH ×2 (07:19→19:22)
[2018-05-14] MEDS: Insulin Aspart 100 Units/ML 3 ML Pen SUBCUT SCH ×4 (08:28→20:39)
[2018-05-14] MEDS: DAPTOmycin 700 MG in Sodium Chloride 0.9% 50 ML IV SCH (12:20)
[2018-05-14] MEDS: Acetaminophen 325 MG Tab PO PRN (14:07)
[2018-05-14] MEDS: Enoxaparin 40 MG/0.4 ML Syringe SUBCUT SCH (16:40)
[2018-05-14] MEDS: Simvastatin 40 MG Tab PO SCH (19:22)
[2018-05-14] MEDS: Lisinopril 10 MG Tab PO SCH (19:22)
[2018-05-14] MEDS: Insulin Detemir 100 Units/ML 3 ML Pen SUBCUT SCH (20:37)
[2018-05-15] MEDS: Acetaminophen 325 MG Tab PO PRN ×3 (05:15→19:31)
[2018-05-15] MEDS: Calcium Carbonate 500 MG Tab.Chew PO SCH (07:50)
[2018-05-15] MEDS: Ferrous Sulfate 324 MG Tab.EC PO SCH (07:50)
[2018-05-15] MEDS: Aspirin 81 MG Tab.EC PO SCH (07:50)
[2018-05-15] MEDS: Docusate Sodium 100 MG Cap PO SCH ×2 (07:51→19:27)
[2018-05-15] MEDS: Insulin Aspart 100 Units/ML 3 ML Pen SUBCUT SCH (07:51)
[2018-05-15] MEDS: metFORMIN 500 MG Tab PO SCH ×2 (07:51→17:34)
[2018-05-15] MEDS: Cholecalciferol (Vitamin D3) 1,000 Unit Tab PO SCH (07:51)
[2018-05-15] MEDS: DAPTOmycin 700 MG in Sodium Chloride 0.9% 50 ML IV SCH (11:00)
[2018-05-15] MEDS: Enoxaparin 40 MG/0.4 ML Syringe SUBCUT SCH (17:34)
[2018-05-15] MEDS: Lisinopril 10 MG Tab PO SCH (19:27)
[2018-05-15] MEDS: Simvastatin 40 MG Tab PO SCH (19:27)
[2018-05-15] MEDS: Insulin Detemir 100 Units/ML 3 ML Pen SUBCUT SCH (19:29)
[2018-05-16] MEDS: Acetaminophen 325 MG Tab PO PRN ×2 (04:38→10:56)
[2018-05-16] MEDS: Calcium Carbonate 500 MG Tab.Chew PO SCH (07:33)
[2018-05-16] MEDS: Docusate Sodium 100 MG Cap PO SCH ×2 (07:33→19:44)
[2018-05-16] MEDS: Ferrous Sulfate 324 MG Tab.EC PO SCH (07:33)
[2018-05-16] MEDS: Aspirin 81 MG Tab.EC PO SCH (07:33)
[2018-05-16] MEDS: metFORMIN 500 MG Tab PO SCH ×2 (07:33→17:32)
[2018-05-16] MEDS: Cholecalciferol (Vitamin D3) 1,000 Unit Tab PO SCH (07:34)
[2018-05-16] MEDS: DAPTOmycin 700 MG in Sodium Chloride 0.9% 50 ML IV SCH (11:38)
[2018-05-16] MEDS: Enoxaparin 40 MG/0.4 ML Syringe SUBCUT SCH (16:05)
[2018-05-16] MEDS: Acetaminophen/HYDROcodone 325-5 MG Tab PO PRN (19:44)
[2018-05-16] MEDS: Simvastatin 40 MG Tab PO SCH (19:44)
[2018-05-16] MEDS: Lisinopril 10 MG Tab PO SCH (19:44)
[2018-05-16] MEDS: Insulin Detemir 100 Units/ML 3 ML Pen SUBCUT SCH (19:46)
[2018-05-17] MEDS: Acetaminophen 325 MG Tab PO PRN ×2 (06:00→10:55)
[2018-05-17] MEDS: Calcium Carbonate 500 MG Tab.Chew PO SCH (07:35)
[2018-05-17] MEDS: Ferrous Sulfate 324 MG Tab.EC PO SCH (07:35)
[2018-05-17] MEDS: Aspirin 81 MG Tab.EC PO SCH (07:35)
[2018-05-17] MEDS: metFORMIN 500 MG Tab PO SCH ×2 (07:35→17:19)
[2018-05-17] MEDS: Docusate Sodium 100 MG Cap PO SCH ×2 (07:35→20:17)
[2018-05-17] MEDS: Cholecalciferol (Vitamin D3) 1,000 Unit Tab PO SCH (07:35)
[2018-05-17] MEDS ORDERED: Lanolin/Mineral Oil/NaCl/Petrolatum Lotion 177 ML Bottle TOP PRN (10:09)
[2018-05-17] MEDS: DAPTOmycin 700 MG in Sodium Chloride 0.9% 50 ML IV SCH (12:47)
[2018-05-17] MEDS: Enoxaparin 40 MG/0.4 ML Syringe SUBCUT SCH (15:41)
[2018-05-17] MEDS: Insulin Detemir 100 Units/ML 3 ML Pen SUBCUT SCH (20:17)
[2018-05-17] MEDS: Simvastatin 40 MG Tab PO SCH (20:19)
[2018-05-17] MEDS: Lisinopril 10 MG Tab PO SCH (20:19)
[2018-05-17] MEDS: Acetaminophen/HYDROcodone 325-5 MG Tab PO PRN (20:23)
[2018-05-18] MEDS: Acetaminophen/HYDROcodone 325-5 MG Tab PO PRN ×2 (05:04→21:15)
[2018-05-18] MEDS: metFORMIN 500 MG Tab PO SCH ×3 (08:04→18:51)
[2018-05-18] MEDS: Aspirin 81 MG Tab.EC PO SCH (08:04)
[2018-05-18] MEDS: Docusate Sodium 100 MG Cap PO SCH ×2 (08:04→19:31)
[2018-05-18] MEDS: Ferrous Sulfate 324 MG Tab.EC PO SCH (08:04)
[2018-05-18] MEDS: Cholecalciferol (Vitamin D3) 1,000 Unit Tab PO SCH (08:04)
[2018-05-18] MEDS: Calcium Carbonate 500 MG Tab.Chew PO SCH (08:05)
[2018-05-18] MEDS: DAPTOmycin 700 MG in Sodium Chloride 0.9% 50 ML IV SCH (12:25)
[2018-05-18] MEDS: Enoxaparin 40 MG/0.4 ML Syringe SUBCUT SCH (16:02)
[2018-05-18] MEDS: Acetaminophen 325 MG Tab PO PRN (16:02)
[2018-05-18] MEDS: Lisinopril 10 MG Tab PO SCH (19:31)
[2018-05-18] MEDS: Insulin Detemir 100 Units/ML 3 ML Pen SUBCUT SCH (19:31)
[2018-05-18] MEDS: Simvastatin 40 MG Tab PO SCH (19:31)
[2018-05-19] MEDS: Acetaminophen/HYDROcodone 325-5 MG Tab PO PRN ×2 (07:37→17:07)
[2018-05-19] MEDS: Cholecalciferol (Vitamin D3) 1,000 Unit Tab PO SCH (07:37)
[2018-05-19] MEDS: Calcium Carbonate 500 MG Tab.Chew PO SCH (07:37)
[2018-05-19] MEDS: Ferrous Sulfate 324 MG Tab.EC PO SCH (07:38)
[2018-05-19] MEDS: Aspirin 81 MG Tab.EC PO SCH (07:38)
[2018-05-19] MEDS: metFORMIN 500 MG Tab PO SCH ×2 (07:38→17:07)
[2018-05-19] MEDS: Docusate Sodium 100 MG Cap PO SCH ×2 (07:38→19:48)
[2018-05-19] MEDS: DAPTOmycin 700 MG in Sodium Chloride 0.9% 50 ML IV SCH (12:28)
[2018-05-19] MEDS: Enoxaparin 40 MG/0.4 ML Syringe SUBCUT SCH (17:08)
[2018-05-19] MEDS: Simvastatin 40 MG Tab PO SCH (19:47)
[2018-05-19] MEDS: Lisinopril 10 MG Tab PO SCH (19:47)
[2018-05-19] MEDS: Insulin Detemir 100 Units/ML 3 ML Pen SUBCUT SCH (19:48)
[2018-05-20] MEDS: Acetaminophen 325 MG Tab PO PRN ×3 (06:16→18:02)
[2018-05-20] MEDS: Aspirin 81 MG Tab.EC PO SCH (07:22)
[2018-05-20] MEDS: Cholecalciferol (Vitamin D3) 1,000 Unit Tab PO SCH (07:23)
[2018-05-20] MEDS: Calcium Carbonate 500 MG Tab.Chew PO SCH (07:23)
[2018-05-20] MEDS: Docusate Sodium 100 MG Cap PO SCH ×2 (07:23→19:49)
[2018-05-20] MEDS: Ferrous Sulfate 324 MG Tab.EC PO SCH (07:23)
[2018-05-20] MEDS: metFORMIN 500 MG Tab PO SCH ×2 (07:24→16:41)
[2018-05-20] MEDS: DAPTOmycin 700 MG in Sodium Chloride 0.9% 50 ML IV SCH (11:30)
[2018-05-20] MEDS: Enoxaparin 40 MG/0.4 ML Syringe SUBCUT SCH (16:41)
[2018-05-20] MEDS: Simvastatin 40 MG Tab PO SCH (19:49)
[2018-05-20] MEDS: Lisinopril 10 MG Tab PO SCH (19:50)
[2018-05-20] MEDS: Insulin Detemir 100 Units/ML 3 ML Pen SUBCUT SCH (19:51)
[2018-05-21] MEDS: Acetaminophen 325 MG Tab PO PRN (05:49)
[2018-05-21] MEDS: Aspirin 81 MG Tab.EC PO SCH (08:08)
[2018-05-21] MEDS: Ferrous Sulfate 324 MG Tab.EC PO SCH (08:08)
[2018-05-21] MEDS: Cholecalciferol (Vitamin D3) 1,000 Unit Tab PO SCH (08:08)
[2018-05-21] MEDS: metFORMIN 500 MG Tab PO SCH ×2 (08:08→17:32)
[2018-05-21] MEDS: Calcium Carbonate 500 MG Tab.Chew PO SCH (08:08)
[2018-05-21] MEDS: Docusate Sodium 100 MG Cap PO SCH ×2 (08:08→19:17)
[2018-05-21] MEDS: DAPTOmycin 700 MG in Sodium Chloride 0.9% 50 ML IV SCH (11:15)
[2018-05-21] MEDS: Enoxaparin 40 MG/0.4 ML Syringe SUBCUT SCH (17:32)
[2018-05-21] MEDS: Acetaminophen/HYDROcodone 325-5 MG Tab PO PRN (17:42)
[2018-05-21] MEDS: Lisinopril 10 MG Tab PO SCH (19:17)
[2018-05-21] MEDS: Simvastatin 40 MG Tab PO SCH (19:17)
[2018-05-21] MEDS: Insulin Detemir 100 Units/ML 3 ML Pen SUBCUT SCH (19:22)
[2018-05-22] MEDS: metFORMIN 500 MG Tab PO SCH ×2 (07:42→16:34)
[2018-05-22] MEDS: Ferrous Sulfate 324 MG Tab.EC PO SCH (07:42)
[2018-05-22] MEDS: Docusate Sodium 100 MG Cap PO SCH ×2 (07:42→19:37)
[2018-05-22] MEDS: Calcium Carbonate 500 MG Tab.Chew PO SCH (07:43)
[2018-05-22] MEDS: Cholecalciferol (Vitamin D3) 1,000 Unit Tab PO SCH (07:43)
[2018-05-22] MEDS: Aspirin 81 MG Tab.EC PO SCH (07:43)
[2018-05-22] MEDS: DAPTOmycin 700 MG in Sodium Chloride 0.9% 50 ML IV SCH (11:41)
[2018-05-22] MEDS: Acetaminophen 325 MG Tab PO PRN ×2 (11:41→19:44)
[2018-05-22] MEDS: Enoxaparin 40 MG/0.4 ML Syringe SUBCUT SCH (16:34)
[2018-05-22] MEDS: Simvastatin 40 MG Tab PO SCH (19:37)
[2018-05-22] MEDS: Lisinopril 10 MG Tab PO SCH (19:37)
[2018-05-22] MEDS: Insulin Detemir 100 Units/ML 3 ML Pen SUBCUT SCH (20:27)
[2018-05-23] MEDS: Acetaminophen 325 MG Tab PO PRN ×2 (06:32→16:43)
[2018-05-23] MEDS: Docusate Sodium 100 MG Cap PO SCH ×2 (07:19→19:29)
[2018-05-23] MEDS: Calcium Carbonate 500 MG Tab.Chew PO SCH (07:19)
[2018-05-23] MEDS: Cholecalciferol (Vitamin D3) 1,000 Unit Tab PO SCH (07:19)
[2018-05-23] MEDS: metFORMIN 500 MG Tab PO SCH ×2 (07:19→17:25)
[2018-05-23] MEDS: Ferrous Sulfate 324 MG Tab.EC PO SCH (07:19)
[2018-05-23] MEDS: Aspirin 81 MG Tab.EC PO SCH (07:19)
[2018-05-23] MEDS: DAPTOmycin 700 MG in Sodium Chloride 0.9% 50 ML IV SCH (12:28)
[2018-05-23] MEDS: Enoxaparin 40 MG/0.4 ML Syringe SUBCUT SCH (16:40)
[2018-05-23] MEDS: Simvastatin 40 MG Tab PO SCH (19:28)
[2018-05-23] MEDS: Lisinopril 10 MG Tab PO SCH (19:28)
[2018-05-23] MEDS: Insulin Detemir 100 Units/ML 3 ML Pen SUBCUT SCH (19:29)
[2018-05-24] MEDS: Acetaminophen 325 MG Tab PO PRN ×2 (02:00→19:28)
[2018-05-24] MEDS: Docusate Sodium 100 MG Cap PO SCH ×2 (07:33→19:28)
[2018-05-24] MEDS: Cholecalciferol (Vitamin D3) 1,000 Unit Tab PO SCH (07:33)
[2018-05-24] MEDS: metFORMIN 500 MG Tab PO SCH ×2 (07:33→16:38)
[2018-05-24] MEDS: Calcium Carbonate 500 MG Tab.Chew PO SCH (07:33)
[2018-05-24] MEDS: Aspirin 81 MG Tab.EC PO SCH (07:33)
[2018-05-24] MEDS: Ferrous Sulfate 324 MG Tab.EC PO SCH (07:33)
[2018-05-24] MEDS: Acetaminophen/HYDROcodone 325-5 MG Tab PO PRN (09:10)
[2018-05-24] MEDS: DAPTOmycin 700 MG in Sodium Chloride 0.9% 50 ML IV SCH (12:28)
[2018-05-24] MEDS: Enoxaparin 40 MG/0.4 ML Syringe SUBCUT SCH (16:38)
[2018-05-24] MEDS: Insulin Detemir 100 Units/ML 3 ML Pen SUBCUT SCH (19:27)
[2018-05-24] MEDS: Simvastatin 40 MG Tab PO SCH (19:28)
[2018-05-24] MEDS: Lisinopril 10 MG Tab PO SCH (19:28)
[2018-05-25] MEDS: Acetaminophen 325 MG Tab PO PRN ×2 (06:10→18:25)
[2018-05-25] MEDS: Ferrous Sulfate 324 MG Tab.EC PO SCH (07:46)
[2018-05-25] MEDS: Aspirin 81 MG Tab.EC PO SCH (07:46)
[2018-05-25] MEDS: metFORMIN 500 MG Tab PO SCH ×2 (07:46→16:56)
[2018-05-25] MEDS: Docusate Sodium 100 MG Cap PO SCH ×2 (07:46→20:05)
[2018-05-25] MEDS: Cholecalciferol (Vitamin D3) 1,000 Unit Tab PO SCH (07:46)
[2018-05-25] MEDS: Calcium Carbonate 500 MG Tab.Chew PO SCH (07:46)
[2018-05-25] MEDS: DAPTOmycin 700 MG in Sodium Chloride 0.9% 50 ML IV SCH (12:57)
[2018-05-25] MEDS: Enoxaparin 40 MG/0.4 ML Syringe SUBCUT SCH (16:56)
[2018-05-25] MEDS: Insulin Detemir 100 Units/ML 3 ML Pen SUBCUT SCH (20:05)
[2018-05-25] MEDS: Simvastatin 40 MG Tab PO SCH (20:05)
[2018-05-25] MEDS: Lisinopril 10 MG Tab PO SCH (20:05)
[2018-05-25] MEDS: Acetaminophen/HYDROcodone 325-5 MG Tab PO PRN (20:08)
[2018-05-26] MEDS: Acetaminophen 325 MG Tab PO PRN ×3 (04:20→19:56)
[2018-05-26] MEDS: Ferrous Sulfate 324 MG Tab.EC PO SCH (07:15)
[2018-05-26] MEDS: Docusate Sodium 100 MG Cap PO SCH ×2 (07:15→19:55)
[2018-05-26] MEDS: Calcium Carbonate 500 MG Tab.Chew PO SCH (07:15)
[2018-05-26] MEDS: metFORMIN 500 MG Tab PO SCH ×2 (07:15→17:52)
[2018-05-26] MEDS: Cholecalciferol (Vitamin D3) 1,000 Unit Tab PO SCH (07:15)
[2018-05-26] MEDS: Aspirin 81 MG Tab.EC PO SCH (07:15)
[2018-05-26] MEDS: DAPTOmycin 700 MG in Sodium Chloride 0.9% 50 ML IV SCH (12:25)
[2018-05-26] MEDS: Enoxaparin 40 MG/0.4 ML Syringe SUBCUT SCH (15:12)
[2018-05-26] MEDS: Lisinopril 10 MG Tab PO SCH (19:54)
[2018-05-26] MEDS: Simvastatin 40 MG Tab PO SCH (19:56)
[2018-05-26] MEDS: Insulin Detemir 100 Units/ML 3 ML Pen SUBCUT SCH (19:58)
[2018-05-27] MEDS: Aspirin 81 MG Tab.EC PO SCH (08:29)
[2018-05-27] MEDS: Cholecalciferol (Vitamin D3) 1,000 Unit Tab PO SCH (08:29)
[2018-05-27] MEDS: Calcium Carbonate 500 MG Tab.Chew PO SCH (08:29)
[2018-05-27] MEDS: metFORMIN 500 MG Tab PO SCH ×2 (08:29→17:27)
[2018-05-27] MEDS: Docusate Sodium 100 MG Cap PO SCH ×2 (08:29→20:09)
[2018-05-27] MEDS: Ferrous Sulfate 324 MG Tab.EC PO SCH (08:29)
[2018-05-27] MEDS: DAPTOmycin 700 MG in Sodium Chloride 0.9% 50 ML IV SCH (12:46)
[2018-05-27] MEDS: Enoxaparin 40 MG/0.4 ML Syringe SUBCUT SCH (15:24)
[2018-05-27] MEDS: Lisinopril 10 MG Tab PO SCH (20:09)
[2018-05-27] MEDS: Simvastatin 40 MG Tab PO SCH (20:09)
[2018-05-27] MEDS: Insulin Detemir 100 Units/ML 3 ML Pen SUBCUT SCH (20:10)
[2018-05-28] MEDS: Docusate Sodium 100 MG Cap PO SCH ×2 (07:42→20:03)
[2018-05-28] MEDS: metFORMIN 500 MG Tab PO SCH ×2 (07:43→17:03)
[2018-05-28] MEDS: Aspirin 81 MG Tab.EC PO SCH (07:43)
[2018-05-28] MEDS: Calcium Carbonate 500 MG Tab.Chew PO SCH (07:43)
[2018-05-28] MEDS: Ferrous Sulfate 324 MG Tab.EC PO SCH (07:43)
[2018-05-28] MEDS: Cholecalciferol (Vitamin D3) 1,000 Unit Tab PO SCH (07:43)
[2018-05-28] MEDS: DAPTOmycin 700 MG in Sodium Chloride 0.9% 50 ML IV SCH (11:31)
[2018-05-28] MEDS: Enoxaparin 40 MG/0.4 ML Syringe SUBCUT SCH (16:22)
[2018-05-28] MEDS: Acetaminophen 325 MG Tab PO PRN (17:06)
[2018-05-28] MEDS: Lisinopril 10 MG Tab PO SCH (20:03)
[2018-05-28] MEDS: Simvastatin 40 MG Tab PO SCH (20:03)
[2018-05-28] MEDS: Insulin Detemir 100 Units/ML 3 ML Pen SUBCUT SCH (20:05)
[2018-05-29] MEDS: Acetaminophen 325 MG Tab PO PRN (02:33)
[2018-05-29] MEDS: Docusate Sodium 100 MG Cap PO SCH ×2 (07:41→20:00)
[2018-05-29] MEDS: metFORMIN 500 MG Tab PO SCH ×2 (07:41→17:05)
[2018-05-29] MEDS: Ferrous Sulfate 324 MG Tab.EC PO SCH (07:41)
[2018-05-29] MEDS: Cholecalciferol (Vitamin D3) 1,000 Unit Tab PO SCH (07:41)
[2018-05-29] MEDS: Aspirin 81 MG Tab.EC PO SCH (07:41)
[2018-05-29] MEDS: Calcium Carbonate 500 MG Tab.Chew PO SCH (07:41)
[2018-05-29] MEDS: DAPTOmycin 700 MG in Sodium Chloride 0.9% 50 ML IV SCH (12:19)
[2018-05-29] MEDS: Enoxaparin 40 MG/0.4 ML Syringe SUBCUT SCH (16:08)
[2018-05-29] MEDS: Lisinopril 10 MG Tab PO SCH (19:08)
[2018-05-29] MEDS: Simvastatin 40 MG Tab PO SCH (19:09)
[2018-05-29] MEDS: Insulin Detemir 100 Units/ML 3 ML Pen SUBCUT SCH (19:09)
[2018-05-30] MEDS: Acetaminophen 325 MG Tab PO PRN ×2 (05:56→16:27)
[2018-05-30] MEDS: Cholecalciferol (Vitamin D3) 1,000 Unit Tab PO SCH (07:16)
[2018-05-30] MEDS: metFORMIN 500 MG Tab PO SCH ×2 (07:16→16:30)
[2018-05-30] MEDS: Aspirin 81 MG Tab.EC PO SCH (07:17)
[2018-05-30] MEDS: Docusate Sodium 100 MG Cap PO SCH ×2 (07:17→19:35)
[2018-05-30] MEDS: Calcium Carbonate 500 MG Tab.Chew PO SCH (07:17)
[2018-05-30] MEDS: Ferrous Sulfate 324 MG Tab.EC PO SCH (07:17)
[2018-05-30] MEDS: DAPTOmycin 700 MG in Sodium Chloride 0.9% 50 ML IV SCH (13:00)
[2018-05-30] MEDS: Enoxaparin 40 MG/0.4 ML Syringe SUBCUT SCH (15:39)
[2018-05-30] MEDS: Lisinopril 10 MG Tab PO SCH (19:36)
[2018-05-30] MEDS: Simvastatin 40 MG Tab PO SCH (19:36)
[2018-05-30] MEDS: Insulin Detemir 100 Units/ML 3 ML Pen SUBCUT SCH (19:37)
[2018-05-31] MEDS: Acetaminophen 325 MG Tab PO PRN ×2 (04:37→19:26)
[2018-05-31] MEDS: Cholecalciferol (Vitamin D3) 1,000 Unit Tab PO SCH (07:16)
[2018-05-31] MEDS: Ferrous Sulfate 324 MG Tab.EC PO SCH (07:16)
[2018-05-31] MEDS: metFORMIN 500 MG Tab PO SCH ×2 (07:17→17:31)
[2018-05-31] MEDS: Aspirin 81 MG Tab.EC PO SCH (07:17)
[2018-05-31] MEDS: Docusate Sodium 100 MG Cap PO SCH ×2 (07:17→19:26)
[2018-05-31] MEDS: Calcium Carbonate 500 MG Tab.Chew PO SCH (07:17)
[2018-05-31] MEDS: DAPTOmycin 700 MG in Sodium Chloride 0.9% 50 ML IV SCH (12:20)
[2018-05-31] MEDS: Enoxaparin 40 MG/0.4 ML Syringe SUBCUT SCH (15:59)
[2018-05-31] MEDS: Simvastatin 40 MG Tab PO SCH (19:26)
[2018-05-31] MEDS: Insulin Detemir 100 Units/ML 3 ML Pen SUBCUT SCH (19:30)
[2018-05-31] MEDS: Lisinopril 10 MG Tab PO SCH (19:30)
[2018-06-01] MEDS: Acetaminophen 325 MG Tab PO PRN (04:08)
[2018-06-01] MEDS: Calcium Carbonate 500 MG Tab.Chew PO SCH (07:16)
[2018-06-01] MEDS: Ferrous Sulfate 324 MG Tab.EC PO SCH (07:16)
[2018-06-01] MEDS: Docusate Sodium 100 MG Cap PO SCH ×2 (07:16→19:16)
[2018-06-01] MEDS: metFORMIN 500 MG Tab PO SCH ×2 (07:16→17:23)
[2018-06-01] MEDS: Cholecalciferol (Vitamin D3) 1,000 Unit Tab PO SCH (07:16)
[2018-06-01] MEDS: Aspirin 81 MG Tab.EC PO SCH (07:16)
[2018-06-01] MEDS: DAPTOmycin 700 MG in Sodium Chloride 0.9% 50 ML IV SCH (11:11)
[2018-06-01] MEDS: Enoxaparin 40 MG/0.4 ML Syringe SUBCUT SCH (16:07)
--- NOTE | 2018-06-01 17:00 | PCM.PN ---
- General Info Date of Service: 06/01/18 Admission Dx/Problem (Free Text): S/P L) DONYA Infection Type II DM Functional Status: Reports: Pain Controlled, Tolerating Diet. Denies: Ambulating (no weight bearing to hip due to restriction of infection and removal of hardware and spacer placed to left hip) - Review of Systems General: Denies: Fever, Weakness, Fatigue HEENT: Reports: No Symptoms Pulmonary: Denies: Shortness of Breath, Cough Cardiovascular: Denies: Chest Pain, Edema, Lightheadedness Gastrointestinal: Denies: Abdominal Pain, Constipation, Diarrhea, Nausea, Vomiting Genitourinary: Reports: No Symptoms Musculoskeletal: Reports: Joint Pain (minimal left hip pain) Skin: Reports: Other (incision healing well.) Neurological: Reports: No Symptoms - Patient Data Vitals - Most Recent: Last Vital Signs Temp 96.0 F 06/01/18 07:08 Pulse 84 06/01/18 07:08 Resp 18 06/01/18 07:08 BP 99/53 L 06/01/18 07:08 Pulse Ox 96 06/01/18 07:08 Weight - Most Recent: 227 lb 12.8 oz Lab Results Last 24 Hours: Laboratory Results - last 24 hr 06/01/18 Range/Units 07:04 POC Glucose 100 (75-105) mg/dl Med Orders - Current: Current Medications Acetaminophen (Tylenol) 650 mg PO Q4H PRN PRN Reason: Pain (Mild 1-3)/fever Last Admin: 06/01/18 04:08 Dose: 650 mg Hydrocodone Bitart/Acetaminophen ([place] 325-5 Mg) 1 - 2 tab PO Q4H PRN PRN Reason: Pain (moderate 4-6) Last Admin: 05/25/18 20:08 Dose: 1 tab Aspirin (Halfprin) 81 mg PO DAILY [facility] Last Admin: 06/01/18 07:16 Dose: 81 mg Calcium Carbonate/Glycine (Tums) 500 mg PO DAILY [facility] Last Admin: 06/01/18 07:16 Dose: 500 mg Cholecalciferol (Vitamin D3) 2,000 units PO DAILY [facility] Last Admin: 06/01/18 07:16 Dose: 2,000 units Diphenhydramine HCl (Benadryl) 25 mg PO Q4H PRN PRN Reason: Rash Last Admin: 04/30/18 19:59 Dose: 25 mg Docusate Sodium (Colace) 100 mg PO BID PRN PRN Reason: Constipation Docusate Sodium (Colace) 100 mg PO BID [facility] Last Admin: 06/01/18 07:16 Dose: 100 mg Enoxaparin Sodium (Lovenox) 40 mg SUBCUT Q24H [facility] Last Admin: 06/01/18 16:07 Dose: 40 mg Ferrous Sulfate (Ferrous Sulfate) 324 mg PO DAILY [facility] Last Admin: 06/01/18 07:16 Dose: 324 mg Heparin Sodium (Porcine) (Heparin Lock Flush 100 Units/Ml) 300 units FLUSH DAILY@1200 [facility] Last Admin: 06/01/18 11:11 Dose: 300 units Hydroxyzine HCl (Atarax) 25 mg PO TID PRN PRN Reason: Itching Last Admin: 05/06/18 01:15 Dose: 25 mg Daptomycin 700 mg/ Sodium (Chloride) 50 mls @ 100 mls/hr IV DAILY@1200 [facility] Last Admin: 06/01/18 11:11 Dose: 100 mls/hr Insulin Detemir (Levemir) 60 unit SUBCUT BEDTIME [facility] Last Admin: 05/31/18 19:30 Dose: 60 units Lisinopril (Prinivil) 10 mg PO QPM [facility] Last Admin: 05/31/18 19:30 Dose: 10 mg Magnesium Hydroxide (Milk Of Magnesia) 30 ml PO Q12H PRN PRN Reason: Constipation Metformin HCl (Glucophage) 1,000 mg PO BIDMEALS [facility] Last Admin: 06/01/18 07:16 Dose: 1,000 mg Multi-Ingredient Lotion (Lubriderm Daily Moisture Lotion) 10 ml TOP BID PRN PRN Reason: Itching Oxyquinoline Sulfate (Bag [place] Oint) 1 oz TOP BID PRN PRN Reason: Itching Polyethylene Glycol (Miralax) 17 gm PO DAILY PRN PRN Reason: Constipation Simvastatin (Zocor) 40 mg PO BEDTIME [facility] Last Admin: 05/31/18 19:26 Dose: 40 mg Temazepam (Restoril) 15 mg PO BEDTIME PRN PRN Reason: Sleep Discontinued Medications Daptomycin 700mg In Sodium Chloride 0.9% 50 Ml 50 mls @ 100 mls/hr IVPUSH DAILY @1200 [facility] Last Admin: 04/27/18 17:13 Dose: Not Given Insulin Aspart (Novolog) 0 unit SUBCUT WITHMEALSANDBED [facility]; Protocol Last Admin: 05/15/18 07:51 Dose: Not Given Metformin HCl (Glucophage) 1,000 mg PO BID [facility] Oxyquinoline Sulfate (Bag [place] Oint) 0 oz TOP BID [facility] Last Admin: 05/13/18 08:13 Dose: 1 applic - Exam General: Alert, Oriented HEENT: Mucous Membr. Moist/[place] Neck: Supple Lungs: Clear to Auscultation, Normal Respiratory Effort Cardiovascular: Regular Rate, Regular Rhythm GI/Abdominal Exam: Normal Bowel Sounds, Soft, Non-Tender Skin: Warm, Dry Wound/Incisions: Healing Well Neurological: No New Focal Deficit - Problem List & Annotations (1) Prosthetic hip infection SNOMED Code(s): 360422272 Code(s): T84.59XA - INFECT/INFLM REACTION DUE TO OTH INTERNAL JOINT PROSTH, INIT; Z96.649 - PRESENCE OF UNSPECIFIED ARTIFICIAL HIP JOINT Status: Acute Priority: High Current Visit: Yes Qualifiers: Encounter type: initial encounter Qualified Code(s): T84.59XA - Infection and inflammatory reaction due to other internal joint prosthesis, initial encounter; Z96.649 - Presence of unspecified artificial hip joint (2) History of total left hip arthroplasty SNOMED Code(s): 238166482905 Code(s): Z96.642 - PRESENCE OF LEFT ARTIFICIAL HIP JOINT Status: Resolved Current Visit: Yes (3) Hyperlipidemia SNOMED Code(s): 10487225 Code(s): E78.5 - HYPERLIPIDEMIA, UNSPECIFIED Status: Chronic Priority: Medium Current Visit: Yes Qualifiers: Hyperlipidemia type: mixed hyperlipidemia Qualified Code(s): E78.2 - Mixed hyperlipidemia (4) Type II diabetes mellitus SNOMED Code(s): 01942076 Code(s): E11.9 - TYPE 2 DIABETES MELLITUS WITHOUT COMPLICATIONS Status: Chronic Priority: Medium Current Visit: Yes Qualifiers: Diabetes mellitus vermin exterminator insulin use: with half-way use Diabetes mellitus complication status: with unspecified complications Qualified Code(s) : E11.8 - Type 2 diabetes mellitus with unspecified complications; Z79.4 - senior living (current) use of insulin (5) Hypertension SNOMED Code(s): 20326000 Code(s): I10 - ESSENTIAL (PRIMARY) HYPERTENSION Status: Chronic Priority : Medium Current Visit: Yes Qualifiers: Hypertension type: unspecified Qualified Code(s): I10 - Essential (primary ) hypertension (6) Uncontrolled diabetes mellitus SNOMED Code(s): 993156402, 347852061 Code(s): E11.65 - TYPE 2 DIABETES MELLITUS WITH HYPERGLYCEMIA Status: Acute Priority: High Current Visit: No Qualifiers: Diabetes mellitus type: type 2 Diabetes mellitus half-way insulin use: with vermin exterminator use Diabetes mellitus complication status: without complication Qualified Code(s): E11.65 - Type 2 diabetes mellitus with hyperglycemia - Problem List Review Problem List Initiated/Reviewed/Updated: Yes - Assessment Assessment:: Prosthetic hip infection - Plan Plan:: S/P Left DONYA removal with spacer placement- Infection Daptomycin 700 mg IV QD until 06/03/2018 Incision CDI. May leave MAGALIE. Suture removal 06/04/2018 Weekly labs to be faxed to ID at [facility]. Labs have been stable. Lovenox for DVT prophylaxis [place] as needed for pain TTWB to LLE PT consultation for gait, strengthening, endurance, and transfer training. He has been ambulating independently with walker. Hypertension Continue home meds. Blood pressures well controlled. Type II DM Home meds plus SSI. QID AC Consistent Carb diet Blood sugars have been well controlled overall. Hyperlipidemia Continue statin therapy Recertification This is a 14 day re-certification visit. Patient requires IV antibiotic until June 03, given significant joint infection. He also continues to work with physical therapy for gait, strengthening, endurance, and transfer training. We anticipate discharge on 06/04/2018, following antibiotics and suture removal. Re- certification visit was one day late due to provider off day. 06-01-2018 30 day recertification done today as frame changer of primary care provider. Patient is doing well. Continue physical therapy for strengthening, transfer training as now weight bearing to left leg until possibly June visit with ortho. Will continue IV antibiotics until 06-03-2018. Anticipate discharge end of week.
[2018-06-01] MEDS: Simvastatin 40 MG Tab PO SCH (19:16)
[2018-06-01] MEDS: Insulin Detemir 100 Units/ML 3 ML Pen SUBCUT SCH (19:16)
[2018-06-01] MEDS: Lisinopril 10 MG Tab PO SCH (19:16)
[2018-06-02] MEDS: Acetaminophen 325 MG Tab PO PRN ×2 (05:17→11:49)
[2018-06-02] MEDS: metFORMIN 500 MG Tab PO SCH ×2 (07:30→16:37)
[2018-06-02] MEDS: Ferrous Sulfate 324 MG Tab.EC PO SCH (07:30)
[2018-06-02] MEDS: Calcium Carbonate 500 MG Tab.Chew PO SCH (07:30)
[2018-06-02] MEDS: Cholecalciferol (Vitamin D3) 1,000 Unit Tab PO SCH (07:30)
[2018-06-02] MEDS: Docusate Sodium 100 MG Cap PO SCH ×2 (07:30→19:52)
[2018-06-02] MEDS: Aspirin 81 MG Tab.EC PO SCH (07:30)
[2018-06-02] MEDS: DAPTOmycin 700 MG in Sodium Chloride 0.9% 50 ML IV SCH (11:21)
[2018-06-02] MEDS: Enoxaparin 40 MG/0.4 ML Syringe SUBCUT SCH (16:01)
[2018-06-02] MEDS: Lisinopril 10 MG Tab PO SCH (19:51)
[2018-06-02] MEDS: Simvastatin 40 MG Tab PO SCH (19:52)
[2018-06-02] MEDS: Insulin Detemir 100 Units/ML 3 ML Pen SUBCUT SCH (19:52)
[2018-06-03] MEDS: Acetaminophen 325 MG Tab PO PRN ×2 (05:25→13:41)
[2018-06-03 07:21] VITALS: BP 100/66
[2018-06-03] MEDS: Docusate Sodium 100 MG Cap PO SCH (07:44)
[2018-06-03] MEDS: Ferrous Sulfate 324 MG Tab.EC PO SCH (07:44)
[2018-06-03] MEDS: metFORMIN 500 MG Tab PO SCH (07:44)
[2018-06-03] MEDS: Calcium Carbonate 500 MG Tab.Chew PO SCH (07:45)
[2018-06-03] MEDS: Aspirin 81 MG Tab.EC PO SCH (07:45)
[2018-06-03] MEDS: Cholecalciferol (Vitamin D3) 1,000 Unit Tab PO SCH (07:45)
[2018-06-03] MEDS: DAPTOmycin 700 MG in Sodium Chloride 0.9% 50 ML IV SCH (11:02)
== END 2018-06-03 14:30 | disposition home or self-care (01) | DRG 561 ==
LOC: CC.MS 13:03 → UNDOADMIN 13:03 → CC.MS 15:54
PROVIDERS: ADMIT General Practice; ATTEND Family Medicine
DX: T84.52XA Infection and inflammatory reaction due to internal left hip prosthesis, initial encounter (principal); Y83.8 Other surgical procedures as the cause of abnormal reaction of the patient, or of later complication, without mention of misadventure at the time of the procedure; I10 Essential (primary) hypertension; G47.30 Sleep apnea, unspecified; E78.00 Pure hypercholesterolemia, unspecified; E78.2 Mixed hyperlipidemia; E11.65 Type 2 diabetes mellitus with hyperglycemia; Z88.1 Allergy status to other antibiotic agents; Z88.0 Allergy status to penicillin; Z79.899 Other long term (current) drug therapy; Z79.82 Long term (current) use of aspirin; Z79.4 Long term (current) use of insulin
CPT/HCPCS: 36415; 80048; 80053; 82550; 82962; 83735; 84443; 85025; 85651; 86140; 97110-GP; 97162-GP; A6250; A9270-GY; J0878; J1642; J1650; J1815-GY; J7050

== ENCOUNTER → 2020-11-22 | Day surgery (SDC) | payer MEDICARE, MEDICAID ==
[~2020-11-22] MED LIST: Ketamine 200 MG/20 ML MDV ONE; Lactated Ringers 1,000 ML IV SCH; Phenylephrine 1% 10 MG/ML SDV ONE; Propofol 200 MG/20 ML SDV ONE; fentaNYL 100 MCG/2 ML SDV ONE
[2020-11-22 10:38] VITALS: BP 127/82; PULSE 83
--- NOTE | 2020-11-22 12:44 | OR ---
DATE OF OPERATION: 11/22/2020 PREOPERATIVE DIAGNOSIS: SCREENING COLONOSCOPY. POSTOPERATIVE DIAGNOSIS: SCREENING COLONOSCOPY. SURGEON: Aric Hummel MD PROCEDURE: FULL-LENGTH COLONOSCOPY. ANESTHESIA: MAC. COMPLICATIONS: None. SPECIMEN: None. FINDINGS: 1. Full-length colonoscopy. 2. Moderate pandiverticulosis. PROCEDURE: FULL-LENGTH COLONOSCOPY. RECOMMENDATIONS: Followup colonoscopy every 10 years. INDICATIONS: The patient was in for routine physical. He is due for a routine screening colonoscopy due to his age. DESCRIPTION OF PROCEDURE: The patient was prepped and draped, placed in the left lateral decubitus position. A lubricated Olympus colonoscope was inserted and easily advanced to the cecum. Direct visualization of the ileocecal valve and appendiceal orifice was accomplished. The bowel prep was adequate. There was a lot of stool present. Most of this was liquid and able to be suctioned, some areas were a little harder to see. Certainly, smaller lesions potentially could have been missed. Upon withdrawal, throughout the length of the colon, I could find no polyps, masses, ulceration, or bleeding sites. No vascular abnormalities or signs of colitis. The patient does have pandiverticular disease all the way over in the right colon, mild in most places, but moderate in the sigmoid. No inflammatory changes were seen. The rectal vault was benign. Retroflexion of the scope in the rectum showed no perianal lesions. Air was suctioned, scope removed without complication. SKIP/JOHN /[id number]
== END ==
LOC: CC.SDS 08:14
PROVIDERS: ATTEND Family Medicine
DX: Z12.11 Encounter for screening for malignant neoplasm of colon (principal); K57.30 Diverticulosis of large intestine without perforation or abscess without bleeding; N40.0 Benign prostatic hyperplasia without lower urinary tract symptoms; I10 Essential (primary) hypertension; E78.5 Hyperlipidemia, unspecified; E66.9 Obesity, unspecified; F32.9 Major depressive disorder, single episode, unspecified; G47.30 Sleep apnea, unspecified; E11.9 Type 2 diabetes mellitus without complications; Z01.812 Encounter for preprocedural laboratory examination; Z20.822 Contact with and (suspected) exposure to COVID-19; Z88.1 Allergy status to other antibiotic agents; Z88.0 Allergy status to penicillin; Z88.5 Allergy status to narcotic agent; Z79.82 Long term (current) use of aspirin; Z79.899 Other long term (current) drug therapy; Z79.4 Long term (current) use of insulin; Z90.49 Acquired absence of other specified parts of digestive tract; Z98.890 Other specified postprocedural states; Z68.36 Body mass index [BMI] 36.0-36.9, adult
CPT/HCPCS: 00811; 82962; 93880; J2370; J2704; J3010; J7120

== ENCOUNTER 2021-01-06 20:55 | Emergency (ER) | payer MEDICARE, MEDICAID ==
[2021-01-06 21:11] VITALS: BP 114/78; PULSE 110
[2021-01-06 21:29] LABS: CHLORIDE,CL 100 mEq/L (98-106); SODIUM,NA 136 mEq/L (136-145)
[2021-01-06] MEDS ORDERED: Ondansetron 4 MG Tab.DIS ONE (21:35)
[2021-01-06] MEDS ORDERED: Take Home: Ondansetron 4 MG Tab.DIS, 2 Tab Pack PO ONE (21:48)
--- NOTE | 2021-01-06 21:51 | EDM.PDOC ---
ED HPI GENERAL MEDICAL PROBLEM - General Chief Complaint: General Stated Complaint: nausea Time Seen by Provider: 01/06/21 21:22 Source of Information: Reports: Patient History Limitations: Reports: No Limitations - History of Present Illness INITIAL COMMENTS - FREE TEXT/NARRATIVE: Elmer is a 50 yo male who presents to the ED with c/o vomiting. He reports the last 2 days he has vomited twice each day. He reports last emesis at 4:30 today. Has been eating and drinking per normal. Does report he has been drinking his Rootbeer as well as adding some Apricot Ayb to his rootbeer. He denies any abdominal pain, fever, diarrhea. No other complaints other than the vomiting. Onset Date: 01/05/21 Duration: Intermittent Location: Reports: Abdomen Associated Symptoms: Reports: Nausea/Vomiting. Denies: Confusion, Chest Pain, Cough, cough w sputum, Diaphoresis, Fever/Chills, Headaches, Loss of Appetite, Malaise, Rash, Seizure, Shortness of Breath, Syncope, Weakness - Related Data Allergies Allergy/AdvReac Type Severity Reaction Status Date / Time amoxicillin Allergy Rash Verified 01/06/21 20:59 cefazolin Allergy Rash Verified 01/06/21 20:59 hydrocodone Allergy Rash Verified 01/06/21 20:59 Penicillins Allergy Rash Verified 01/06/21 20:59 Home Meds: Home Meds Calcium Carbonate [Calcium] 1,000 mg PO DAILY 04/28/16 [History] Ferrous Sulfate [Iron] 325 mg PO DAILY 04/28/16 [History] Cholecalciferol (Vitamin D3) [Vitamin D3] 2,000 unit PO DAILY 04/27/18 [History] Lisinopril 10 mg PO DAILY 04/27/18 [History] Rosuvastatin Calcium 10 mg PO QPM 04/27/18 [History] Acetaminophen [Tylenol] 650 mg PO Q4H PRN #60 tablet 06/03/18 [Rx] Meloxicam 15 mg PO DAILY 08/13/20 [History] PARoxetine HCL [Paxil] 30 mg PO DAILY 08/13/20 [History] Insuln Asp Prot/Insulin Aspart [NovoLOG Mix 70-30] 28 units SQ BEDTIME 10/22/20 [History] Insuln Asp Prot/Insulin Aspart [NovoLOG Mix 70-30] 55 unit SQ QAM 12/08/20 [History] Past Medical History Cardiovascular History: Reports: High Cholesterol, Hypertension Endocrine/Metabolic History: Reports: Diabetes, Type II - Past Surgical History Musculoskeletal Surgical History: Reports: Hip Replacement Social & Family History - Family History Family Medical History: No Pertinent Family History Cardiac: Reports: High Cholesterol, Hypertension Endocrine/Metabolic: Reports: Diabetes, type II - Caffeine Use Caffeine Use: Reports: None ED ROS GENERAL - Review of Systems Review Of Systems: Comprehensive ROS is negative, except as noted in HPI. ED EXAM, GENERAL - Physical Exam Exam: See Below Exam Limited By: No Limitations General Appearance: Alert, WD/WN, No Apparent Distress Eye Exam: Bilateral Eye: EOMI, PERRL Throat/Mouth: Normal Inspection, Normal Lips, Normal Teeth, Normal Gums, Normal Oropharynx, Normal Voice, No Airway Compromise Head: Atraumatic, Normocephalic Neck: Normal Inspection, Supple, Non-Tender, Full Range of Motion Respiratory/Chest: No Respiratory Distress, Lungs Clear, Normal Breath Sounds, No Accessory Muscle Use, Chest Non-Tender Cardiovascular: Normal Peripheral Pulses, Regular Rate, Rhythm, No Edema, No Gallop, No JVD, No Murmur, No Rub GI/Abdominal: Normal Bowel Sounds, Soft, Non-Tender, No Organomegaly, No Distention, No Abnormal Bruit, No Mass Back Exam: Normal Inspection, Full Range of Motion, NT Extremities: Normal Inspection, Normal Range of Motion, Non-Tender, Normal Capillary Refill, No Pedal Edema Neurological: Alert, Oriented, CN II-XII Intact, Normal Cognition, Normal Gait, Normal Reflexes, No Motor/Sensory Deficits Psychiatric: Normal Affect, Normal Mood Course - Vital Signs Last Recorded V/S: Last Vital Signs Temp 98.7 F 01/06/21 21:00 Pulse 110 H 01/06/21 21:00 Resp 16 01/06/21 21:00 BP 114/78 01/06/21 21:00 Pulse Ox 94 L 01/06/21 21:00 - Orders/Labs/Meds Labs: Laboratory Tests 01/06/21 01/06/21 01/06/21 Range/Units 21:13 21:13 21:18 WBC 7.1 (5.0-10.0) 10^3/uL RBC 4.30 L (4.50-6.00) 10^6/uL Hgb 13.7 L (14.0-18.0) g/dL Hct 39.1 L (40.0-54.0) % MCV 90.9 (82.0-94.0) fL MCH 31.9 (27.0-32.0) pg MCHC 35.0 (33.0-38.0) g/dL RDW Coeff of Guerline 12.4 (11.0-15.0) % Plt Count 288 (150-400) 10^3/uL Neut % (Auto) 78.4 (35-85) % Lymph % (Auto) 14.2 (10-55) % [place] % (Auto) 6.5 (0-16) % Eos % (Auto) 0.6 (0-5) % Baso % (Auto) 0.3 (0-3) % Neut # (Auto) 5.56 (1.80-7.00) 10^3/uL Lymph # (Auto) 1.01 (1.00-4.80) 10^3/uL [place] # (Auto) 0.46 (0.00-0.80) 10^3/uL Eos # (Auto) 0.04 (0.00-0.45) 10^3/uL Baso # (Auto) 0.02 10^3/uL Sodium 136 (136-145) mEq/L Potassium 4.2 (3.5-5.0) mEq/L Chloride 100 (98-106) mEq/L Carbon Dioxide 28 (21-32) mmol/L BUN 12 (7-18) mg/dL Creatinine 1.0 (0.7-1.3) mg/dL Est Cr Clr Drug Dosing 90.24 mL/min Estimated GFR (MDRD) > 60 (>=60) mL/min Glucose 317 H* D (75-99) mg/dL Calcium 9.4 (8.4-10.1) mg/dL Total Bilirubin 0.6 (0.0-1.0) mg/dL AST 14 L (15-37) U/L ALT 29 (12-78) U/L Alkaline Phosphatase 110 (46-116) U/L C-Reactive Protein < 0.2 L (0.2-0.8) mg/dL Total Protein 7.4 (6.4-8.2) g/dL Albumin 4.0 (3.4-5.0) g/dL Urine Color Yellow (YELLOW) Urine Appearance Clear (CLEAR) Urine pH 5.5 (4.5-8.0) Ur Specific [place] >= 1.030 H (1.003-1.020) Urine Protein 100 H (NEGATIVE) mg/dL Urine Glucose (UA) 500 H (NEGATIVE) mg/dL Urine Ketones 40 H (NEGATIVE) mg/dL Urine Occult Blood Negative (NEGATIVE) Urine Nitrite Negative (NEGATIVE) Urine Bilirubin Negative (NEGATIVE) Urine Urobilinogen 0.2 (0.2-1.0) EU/dL Ur Leukocyte Esterase Negative (NEGATIVE) Urine RBC Not seen (0-5) /HPF Urine WBC Not seen (0-5) /HPF Urinalysis Comment Meds: Medications Discontinued Medications Generic Name Dose Route Start Last Admin Trade Name Freq PRN Reason Stop Dose Admin Ondansetron HCl 2 packet 01/06/21 21:48 01/06/21 21:54 Take Home: Ondansetron Odt 4 Mg, 2 Tab Pack PO 01/06/21 21:49 2 packet ONETIME ONE Administration Departure - Departure Time of Disposition: 21:48 Disposition: Home, Self-Care 01 Condition: Good Clinical Impression: Gastroenteritis - Discharge Information *PRESCRIPTION DRUG MONITORING PROGRAM REVIEWED*: Not Applicable *COPY OF PRESCRIPTION DRUG MONITORING REPORT IN PATIENT YAQUELIN: Not Applicable Instructions: Viral Gastroenteritis, Adult, [id number], Nausea and Vomiting, Adult Forms: ED Department Discharge Additional Instructions: - Rest - Small sips of fluid to keep fluids down - Recommend refraining from pop and alcohol until feeling better - May use Zofran 1 tablet every 6 hours as needed for nausea/vomiting - Follow up with PCP in clinic for recheck if symptoms worsen or do not improve - Return to ED for emergent needs Sepsis Event Note (ED) - Evaluation Sepsis Screening Result: No Definite Risk - Focused Exam Vital Signs: Vital Signs Temp Pulse Resp BP Pulse Ox 01/06/21 21:00 98.7 F 110 H 16 114/78 94 L - Problem List & Annotations (1) Gastroenteritis SNOMED Code(s): 37218816 Code(s): K52.9 - NONINFECTIVE GASTROENTERITIS AND COLITIS, UNSPECIFIED Status: Acute - Problem List Review Problem List Initiated/Reviewed/Updated: Yes - Assessment/Plan Assessment:: Gastroenteritis Plan: Lab work unremarkable except elevated glucose, which is normal for patient. No emesis during ED stay. Will send patient with Zofran to use as needed. Recommend he refrain from pop and alcohol while not feeling well. Encouraged him to rather drink water. Follow up for recheck if symptoms worsen or do not improve. Patient discharged in satisfactory condition.
== END 2021-01-06 22:00 | disposition home or self-care (01) ==
LOC: CC.ED 20:55
DX: K52.9 Noninfective gastroenteritis and colitis, unspecified (principal); I10 Essential (primary) hypertension; E78.00 Pure hypercholesterolemia, unspecified; E11.9 Type 2 diabetes mellitus without complications; Z88.0 Allergy status to penicillin; Z88.5 Allergy status to narcotic agent; Z88.1 Allergy status to other antibiotic agents; Z79.4 Long term (current) use of insulin; Z79.899 Other long term (current) drug therapy
CPT/HCPCS: 36415; 80053; 81001; 85025; 86140; 99284; A9270